=== PATIENT | female | born 1950 | race Caucasian/White ===

== ENCOUNTER 2019-12-15 13:13 | Outpatient (CLI) | payer OTHER, SELFPAY ==
[2019-12-15 14:37] LABS: IFOB Positive Control Positive; Immunochemical Fecal Occult Bl Negative (N)
== END 2019-12-15 13:14 | disposition home or self-care (01) ==
PROVIDERS: PCP Family Medicine; Visit Provider Family Medicine
DX: R19.7 Diarrhea, unspecified (principal)
CPT/HCPCS: 82274; 87045; 87046; 87427

== ENCOUNTER → 2020-05-13 12:21 | Outpatient (CLI) | payer OTHER, SELFPAY ==
--- NOTE | ~2020-05-13 | MM_ITS ---
EXAMINATION: MM screening jhonny BI w maverick HISTORY: Screening TECHNIQUE: Craniocaudal and mediolateral oblique 3-D tomosynthesis images were obtained and synthetic 2-D images were generated. CAD analysis was submitted and interpreted. COMPARISON: Comparison to multiple prior studies sequentially, with oldest reviewed study dated 04/28. BREAST PARENCHYMAL COMPOSITION: The breasts are almost entirely fatty. FINDINGS: There is no evidence of suspicious mass, calcification, or architectural distortion to sugg est malignancy in either breast. There has been no suspicious interval change. IMPRESSION: 1. No mammographic evidence of malignancy. 2. Recommend routine screening mammography in one year. BI-RADS Category 1: Negative Reviewed, dictated and finalized at location A. EMENT WORKER
--- NOTE | ~2020-05-13 | DEXA_ITS ---
Bone Density Report Name: Geraldine Powell Age: 69 Sex: Female Ethnicity: White Date of : 1950 Indication: osteopenia; height loss; postmenopausal Referring Provider: Carissa, Yovana Study: Bone densitometry was performed. Exam Date: May 13, 2020 Accession number: [id number] Bone Density: Region BMD T-score Z-score Classification AP Spine (L1-L4) 0.901 -1.3 0.7 Osteopenia Femoral Neck (Left) 0.630 -2.0 -0.2 Osteopenia Total Hip (Left) 0.959 0.1 1.6 Normal Femoral Neck (Right) 0.722 -1.1 0.6 Osteopenia Total Hip (Right) 0.942 0.0 1.4 Normal Total Hip Mean 0.951 0.1 1.5 Normal World Health Organization criteria for BMD impression classify patients as: Normal (T-score at or above -1.0), Osteopenia (T-score between -1.0 and -2.5), or Osteoporosis (T-score at or below -2.5). 10-year Fracture Risk(1): Major Osteoporotic Fracture 9.6% Hip Fracture 1.5% Reported Risk Factors: [place] (), Neck BMD=0.630, BMI=43.3 (1) FRAX(R) Version 3.08. Fracture probability calculated for an untreated patient. Fracture probability may be lower if the patient has received treatment. Previous Exams: Region Exam Age BMD T-score BMD Change BMD Change Date g/cm2 vs Baseline vs Previous AP Spine(L1-L4) 05/13/2020 69 0.901 -1.3 -0.008 -0.008 09/04/2012 62 0.909 -1.3 Total Hip(Left) 05/13/2020 69 0.959 0.1 -0.050* -0.050* 09/04/2012 62 1.009 0.5 Total Hip(Right) 05/13/2020 69 0.942 0.0 -0.107* -0.107* 09/04/2012 62 1.048 0.9 *Denotes significance at 95% confidence level, LSC for AP Spine = 0.022 g/cm2, LSC for Total Hip = 0.027 g/cm2 Clinical Information Provided by Patient: Has used the following medications: Vitamin D Patient maximum height was 62 Menopause Age: 56 No regular weight bearing exercise Drinks caffeinated beverages Onset of menses at age 15 Number of children 2 Impression: The patient has low bone mass, based on the Left Femoral Neck T-score. The patient has an estimated ten-year risk of hip fracture of 1.5% and an estimated ten-year risk of major fracture of 9.6%, based on the WHO FRAX algorithm. The BMD for the Total Hip(Left) decreased, changing by -0.050 since the last DXA exam. The BMD for the Total Hip(Right) decreased, changing by -0.107 since the last DXA exam. Discussion: BONE DENSITY IS LOW AT ONE OR MORE SKELETAL SITES. This pat
== END ==
PROVIDERS: PCP Family Medicine; Visit Provider Family Medicine
DX: Z12.31 Encounter for screening mammogram for malignant neoplasm of breast (principal); Z78.0 Asymptomatic menopausal state; M85.88 Other specified disorders of bone density and structure, other site; M85.852 Other specified disorders of bone density and structure, left thigh; M85.851 Other specified disorders of bone density and structure, right thigh
CPT/HCPCS: 77063; 77067; 77080

== ENCOUNTER → 2020-11-11 10:21 | Outpatient (CLI) | payer OTHER, SELFPAY ==
--- NOTE | ~2020-11-11 | XR_ITS ---
EXAMINATION: XR shoulder LT min 2V INDICATION: Left shoulder pain TECHNIQUE: Four views of the left shoulder are submitted. COMPARISON: None FINDINGS: Normal alignment. No fracture. There is mild osteoarthritis of the acromioclavicular and gl enohumeral joints. Soft tissues are unremarkable. IMPRESSION: 1. No acute osseous abnormality. Reviewed, dictated and finalized at location A.
--- NOTE | ~2020-11-11 | XR_ITS ---
EXAMINATION:XR_[id number]_CR DATE: 11/11/2020 11:06 INDICATION: Neck pain TECHNIQUE: AP, lateral, lateral swimmers and odontoid views of the cervical spine are provided. COMPARISON: 08/01/2016 FINDINGS: There is 1 mm anterolisthesis of C4 on C5. There is moderate loss of intervertebral disc sp angie height at C5-6 and mild loss of disc space height at C6-7.. The odontoid is intact. No fracture i s identified. The vertebral body heights are normal. There is moderate multilevel facet and uncoverte bral joint osteoarthritis. Prevertebral soft tissues are normal. IMPRESSION: 1. Moderate cervical cervical spondylosis without acute findings or significant interval change. Reviewed, dictated and finalized at location A.
== END ==
PROVIDERS: PCP Family Medicine; Visit Provider Family Medicine
DX: M47.812 Spondylosis without myelopathy or radiculopathy, cervical region (principal); M25.512 Pain in left shoulder
CPT/HCPCS: 72040; 73030

== ENCOUNTER → 2021-05-19 11:20 | Outpatient (CLI) | payer OTHER, SELFPAY ==
--- NOTE | ~2021-05-19 | MM_ITS ---
EXAMINATION: MM screening jhonny BI w maverick HISTORY: Screening TECHNIQUE: Craniocaudal and mediolateral oblique 3-D tomosynthesis images were obtained and synthetic 2-D images were generated. CAD analysis was submitted and interpreted. COMPARISON: Comparison to multiple prior studies sequentially, with oldest reviewed study dated 08/26. BREAST PARENCHYMAL COMPOSITION: The breasts are almost entirely fatty. FINDINGS: There is no evidence of suspicious mass, calcification, or architectural distortion to sugg est malignancy in either breast. There has been no suspicious interval change. IMPRESSION: 1. No mammographic evidence of malignancy. 2. Recommend routine screening mammography in one year. BI-RADS Category 1: Negative Reviewed, dictated and finalized at location A. DOWN MAN
== END ==
PROVIDERS: Visit Provider Family Medicine
DX: Z12.31 Encounter for screening mammogram for malignant neoplasm of breast (principal)
CPT/HCPCS: 77063; 77067

== ENCOUNTER 2021-11-29 12:30 | Outpatient (RCR) | payer OTHER, SELFPAY ==
--- NOTE | 2021-10-25 11:30 | PTOPEVAL ---
Thank you for referring Geraldine Powell to [facility].? She is scheduled to be seen for therapy? 2x/week for 5 weeks. The plan of treatment includes land and aquatic exercises, for the buoyancy effects of the water and ease of motion with decreased WB on L LE. Please review, sign, date and return this plan of care ADAN. I agree with and certify that the following plan of care is medically necessary. Referring Physician Date Attending Provider: Yovana Ferrer MD Outpatient Past Medical History Past Medical History Source of Past Medical History Patient Neurological History Hx Neurological Disorders No Significant History Cardiovascular History Hx Hypertension Yes: meds Respiratory History Hx Sleep Apnea Yes: have CPAP Gastrointestinal History Hx Cholecystectomy Yes Genitourinary History Hx Other Genitourinary Disorders Yes: occasional urinary incontinence at night Musculoskeletal History Hx Arthritis Yes: alot of arthritis all over body Hx Other Musculoskeletal Disorders Yes: L humeral fracture/ nonsurgical Endocrine History Hx Endocrine Disorders No Significant History Evaluation Information Problem Diagnosis L tibial stress fracture/ OA L knee Onset June 2021 Subjective Information steroid injection in June, Query Text:As Reported By Patient/ increase in pain in beginning Family of July- thought it was from sciatica; went to chiropractor ; finally got into ortho dr- had MRI, found stress fracture ; no fall since fall in Feb with injury to L shoulder; non surgical--have brace but it will not stay on--dr aware of this; using wheeled walker or cane; had PT on knee prior to seeing dr--then after MRI NO PT on knee until this new order; and does not have any restrictions from dr at this time; she has been doing sitting knee flexion/extension exercises only; Prior Level of Function Activity Level (Last 3 Months) Cooking Yes Cleaning Yes Laundry No Shopping Yes Driving Yes Home Setting Home Type House Living Situation
--- NOTE | 2021-11-09 12:56 | PCPTNOTE ---
Patient did not show up for scheduled appointment this date. Called and spoke to patient, she stated she was sorry, but, she looked at her schedule wrong.
--- NOTE | 2021-11-29 13:07 | PTOPDC ---
Assessment and note entered by Cheyenne Maurice, PT Evaluation Information Assessment Status Discharge Subjective Information Nabila reports: am stronger--can be up on my legs longer; still leery of falling; moving around more freely; use walker at night for safety to go to the bathroom, otherwise walk with the cane and sometimes without anything; knee is not as sore or painful, but ankles and feet still painful ; plan to return to the aquatic exercises at the fitness center; is doing all the exercises at home too; Reported Pain Level Pain Score Self Report Additional Pain Score Comments pain range 0-7/10 in L leg--knee, foot, ankle pain ; walking/standing with home tasks 1 & 1/2 hours; sometimes have pain in L leg with turning over in bed; ice and tylenol for pain; reinforced activity/rest balance to manage pain; Assessment PT Clinical Summary Nabila has received 10 PT sessions for the diagnosis of L tibial stress fracture and knee pain. Compared to the initial evaluation: pain rating at the high rating is the same and low rating decreased from 4 to 0/10; reported standing/ walking tolerance increased by 30 min; 2 minute walking distance increased by 75'; strength of L hip and knee have improved. She is independent with her home exercise program for LE strengthening and aquatic exercises, for return to fitness center. She continues to report a fear of falling and voiced concern about her ankle pain and progression of her ankle issues, which may affect her mobility. The goals were partially achieved. Discharge PT services. She is to continue with her home exercises and increase activity level as tolerated. Plan of Care PT Services Indicated No
== END 2021-11-29 15:17 | disposition home or self-care (01) ==
LOC: ANHPT 12:30
PROVIDERS: PCP Family Medicine; Visit Provider Family Medicine
DX: M84.362D Stress fracture, left tibia, subsequent encounter for fracture with routine healing (principal); M17.12 Unilateral primary osteoarthritis, left knee
CPT/HCPCS: 97110; 97113; 97162; 97530; 99199

== ENCOUNTER → 2022-05-31 13:12 | Outpatient (CLI) | payer OTHER, SELFPAY ==
--- NOTE | ~2022-05-31 | MM_ITS ---
EXAMINATION: MM screening jhonny BI w maverick HISTORY: Screening TECHNIQUE: Craniocaudal and mediolateral oblique 3-D tomosynthesis images were obtained and synthetic 2-D images were generated. CAD analysis was submitted and interpreted. COMPARISON: Comparison to multiple prior studies sequentially, with oldest reviewed study dated 10/2015. BREAST PARENCHYMAL COMPOSITION: The breasts are almost entirely fatty. FINDINGS: There is no evidence of suspicious mass, calcification, or architectural distortion to sugg est malignancy in either breast. There has been no suspicious interval change. IMPRESSION: 1. No mammographic evidence of malignancy. 2. Recommend routine screening mammography in one year. BI-RADS Category 1: Negative Reviewed, dictated and finalized at location A.
--- NOTE | ~2022-05-31 | DEXA_ITS ---
Bone Density Report Name: DELORES FRENCH Age: 71 Sex: Female Ethnicity: White Date of : 1950 Indication: osteopenia; height loss; prior fracture; postmenopausal Referring Provider: Carissa, Yovana Study: Bone densitometry was performed. Exam Date: May 31, 2022 Accession number: [id number] Bone Density: Region BMD T-score Z-score Classification AP Spine (L1-L4) 0.884 -1.5 0.7 Osteopenia Femoral Neck (Left) 0.590 -2.3 -0.5 Osteopenia Total Hip (Left) 0.901 -0.3 1.2 Normal Femoral Neck (Right) 0.681 -1.5 0.3 Osteopenia Total Hip (Right) 0.949 0.1 1.6 Normal Total Hip Mean 0.925 -0.1 1.4 Normal World Health Organization criteria for BMD impression classify patients as: Normal (T-score at or above -1.0), Osteopenia (T-score between -1.0 and -2.5), or Osteoporosis (T-score at or below -2.5). 10-year Fracture Risk(1): Major Osteoporotic Fracture 18% Hip Fracture 3.5% Reported Risk Factors: [place] (), Neck BMD=0.590, BMI=44.2, previous fracture (1) FRAX(R) Version 3.08. Fracture probability calculated for an untreated patient. Fracture probability may be lower if the patient has received treatment. Previous Exams: Region Exam Age BMD T-score BMD Change BMD Change Date g/cm2 vs Baseline vs Previous AP Spine(L1-L4) 05/31/2022 71 0.884 -1.5 -0.025* -0.017 05/13/2020 69 0.901 -1.3 -0.008 -0.008 09/04/2012 62 0.909 -1.3 Total Hip(Left) 05/31/2022 71 0.901 -0.3 -0.108* -0.057* 05/13/2020 69 0.959 0.1 -0.050* -0.050* 09/04/2012 62 1.009 0.5 Total Hip(Right) 05/31/2022 71 0.949 0.1 -0.099* 0.008 05/13/2020 69 0.942 0.0 -0.107* -0.107* 09/04/2012 62 1.048 0.9 *Denotes significance at 95% confidence level, LSC for AP Spine = 0.022 g/cm2, LSC for Total Hip = 0.027 g/cm2 Clinical Information Provided by Patient: Has had a low trauma fracture Has used the following medications: Vitamin D, Calcium, occasionally Patient maximum height was 62 Menopause Age: 56 No regular weight bearing exercise Drinks caffeinated beverages Onset of menses at age 15 Number of children 2 Impression: The patient has low bone mass, based on the Left Femoral Neck T-score. The patient has an estimated ten-year risk of hip fracture of 3.5% and an estimated ten-year risk of major fracture of 18%, ba
== END ==
PROVIDERS: PCP Family Medicine; Visit Provider Family Medicine
DX: Z12.31 Encounter for screening mammogram for malignant neoplasm of breast (principal); Z78.0 Asymptomatic menopausal state; M85.88 Other specified disorders of bone density and structure, other site; M85.852 Other specified disorders of bone density and structure, left thigh; M85.851 Other specified disorders of bone density and structure, right thigh
CPT/HCPCS: 77063; 77067; 77080

== ENCOUNTER 2023-06-28 14:44 | Outpatient (CLI) | payer OTHER, SELFPAY ==
--- NOTE | ~2023-06-28 | MM_ITS ---
EXAMINATION: MM screening jhonny BI w maverick HISTORY: Screening TECHNIQUE: Craniocaudal and mediolateral oblique 3-D tomosynthesis images were obtained and synthetic 2-D images were generated. CAD analysis was submitted and interpreted. COMPARISON: Comparison to multiple prior studies sequentially, with oldest reviewed study dated 07/2020. BREAST PARENCHYMAL COMPOSITION: Not Dense: Breast are almost entirely fatty. FINDINGS: There is no evidence of suspicious mass, calcification, or architectural distortion to sugg est malignancy in either breast. There has been no suspicious interval change. IMPRESSION: 1. No mammographic evidence of malignancy. 2. Recommend routine screening mammography in one year. BI-RADS Category 1: Negative Reviewed, dictated and finalized at location B.
== END 2023-06-28 14:45 ==
LOC: MICIMG 14:45
PROVIDERS: PCP Family Medicine; Visit Provider Family Medicine
DX: Z12.31 Encounter for screening mammogram for malignant neoplasm of breast (principal)
CPT/HCPCS: 77063; 77067

== ENCOUNTER 2023-08-13 10:21 | Outpatient (CLI) | payer OTHER, SELFPAY ==
--- NOTE | ~2023-08-13 | MR_ITS ---
MRI of the right knee Clinical history: Tibial stress fracture Technique: Coronal proton density and proton density-weighted images, sagittal proton-density and T2 fat-sat images, and axial proton-density fat-saturated images were acquired. Findings: Anterior and posterior cruciate ligaments are intact. Medial collateral ligament and the la teral collateral ligament, as are intact. Popliteus tendon is intact. There is complex tearing of the posterior horn of the medial meniscus, which is diminutive. There is also probable complex tearing of the body segment of the lateral meniscus. 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 There is e xtensive grade 4 chondral malacia the femoral trochlea. There is patchy moderate to high-grade chondr omalacia of the medial femoral condyle. There is mild chondral thinning of the lateral compartment. S mall tricompartmental osteophytes are present. Extensor mechanism is intact. No significant joint effusion. No Clarke's cyst. Impression: No distinct evidence for tibial stress fracture. Comput tearing posterior horn of the medial assist. Probable complex tear of the body segment lateral meniscus. Tricompartmental degenerative change, as detailed above, worst in the patellofemoral compartment. Reviewed, dictated and finalized at location . Impression: No distinct evidence for tibial stress fracture. Comput tearing posterior horn of the medial assist. Probable complex tear of the body segment lateral meniscus. Tricompartmental degenerative change, as detailed above, worst in the patellofe moral compartment.
== END 2023-08-13 10:22 ==
LOC: MICIMG 10:22
PROVIDERS: PCP Family Medicine
DX: S83.231A Complex tear of medial meniscus, current injury, right knee, initial encounter (principal); M17.11 Unilateral primary osteoarthritis, right knee; X58.XXXA Exposure to other specified factors, initial encounter
CPT/HCPCS: 73721

== ENCOUNTER 2024-08-22 11:09 | Outpatient (CLI) | payer MEDICARE, SELFPAY ==
--- NOTE | ~2024-08-22 | MM_ITS ---
EXAMINATION: MM screening jhonny BI w maverick HISTORY: Screening TECHNIQUE: Craniocaudal and mediolateral oblique 3-D tomosynthesis images were obtained and synthetic 2-D images were generated. CAD analysis was submitted and interpreted. COMPARISON: Comparison to multiple prior studies sequentially, with oldest reviewed study dated 01/11. BREAST PARENCHYMAL COMPOSITION: Not Dense: The breasts are almost entirely fatty. FINDINGS: There is no evidence of suspicious mass, calcification, or architectural distortion to sugg est malignancy in either breast. There has been no suspicious interval change. IMPRESSION: 1. No mammographic evidence of malignancy. 2. Recommend routine screening mammography in one year. BI-RADS Category 1: Negative Reviewed, dictated and finalized at location A.
== END 2024-08-22 11:10 | disposition home or self-care (01) ==
LOC: MICIMG 11:10
PROVIDERS: PCP Family Medicine; Visit Provider Family Medicine
DX: Z12.31 Encounter for screening mammogram for malignant neoplasm of breast (principal)
CPT/HCPCS: 77063; 77067

== ENCOUNTER 2025-01-29 11:05 | Outpatient (CLI) | payer MEDICARE, SELFPAY ==
--- NOTE | ~2025-01-29 | DEXA_ITS ---
Bone Density Report Name: DELORES FRENCH Age: 74 Sex: Female Ethnicity: White Date of : 1950 Indication: osteopenia; height loss; prior fracture; Referring Provider: Carissa, Yovana Study: Bone densitometry was performed. Exam Date: January 29, 2025 Accession number: [id number] Bone Density: Region BMD T-score Z-score Classification AP Spine(L2, L3, L4) 0.828 -2.3 0.1 Osteopenia Femoral Neck (Left) 0.567 -2.5 -0.5 Osteoporosis Total Hip (Left) 0.839 -0.8 0.9 Normal Femoral Neck (Right) 0.670 -1.6 0.4 Osteopenia Total Hip (Right) 0.820 -1.0 0.7 Normal Total Hip Mean 0.830 -0.9 0.8 Normal World Health Organization criteria for BMD impression classify patients as: Normal (T-score at or above -1.0), Osteopenia (T-score between -1.0 and -2.5), or Osteoporosis (T-score at or below -2.5). 10-year Fracture Risk: FRAX not reported because: Some T-score for Spine Total or Hip Total or Femoral Neck at or below -2.5 Previous Exams: -- Region Exam Age BMD T-score BMD Change BMD Change Date g/cm2 vs Baseline vs Previous -- AP Spine (L2-L4) 01/29/2025 74 0.828 -2.3 -8.8%* -5.1%* 05/31/2022 71 0.872 -1.9 -3.9%* -3.2%* 05/13/2020 69 0.901 -1.6 -0.7% -0.7% 09/04/2012 62 0.907 -1.6 Total Hip(Left) 01/29/2025 74 0.839 -0.8 -16.8%# -6.9%# 05/31/2022 71 0.901 -0.3 -10.7%* -6.0%* 05/13/2020 69 0.959 0.1 -5.0%* -5.0%* 09/04/2012 62 1.009 0.5 Total Hip(Right) 01/29/2025 74 0.820 -1.0 -21.8%# -13.6%# 05/31/2022 71 0.949 0.1 -9.5%* 0.8% 05/13/2020 69 0.942 0.0 -10.2%* -10.2%* 09/04/2012 62 1.048 0.9 -- *Denotes significance at 95% confidence level, LSC for AP Spine = 0.022 g/cm2, LSC for Total Hip = 0.027 g/cm2 Rate of change results reflect vertebral levels common to all scans # Denotes dissimilar scan types or analysis methods Clinical Information Provided by Patient: Has had a low trauma fracture Patient maximum height was 62 Menopause Age: 56 No regular weight bearing exercise Onset of menses at age 15 Number of children 2 Impression: The patient has established osteoporosis, based on the Left Femoral Neck T-score and the existence of a prior fracture. The patient has risk factors, including: previous fracture. The BMD for the AP Spine (L2-L4) decreased, changing by -5.1% since the last DXA exam. Discussion: HIGH RISK OF FRACTURE. BONE DENSITY IS UNDESIRABLY LOW AT ONE OR MORE SKELETAL SITES, CONSISTENT WITH POSTMENOPAUSAL OSTEOPOROSIS. This patient's lowest T-score, in a patient who has previously fractured, meets the World Health Organization's (WHO) criteria for severe osteoporosis. In untreated patients, the risk of osteoporotic fracture increases approximately two-fold for each 1.0 SD decrease in T-score. Low bone density is not the only risk factor for fracture; also consider factors such as patient's age, frailty or poor health, risk of falling, risk of injury, previous osteoporotic fracture, family history of osteoporosis, cigarette smoking, low body weight, etc. Not everyone with low bone mineral density has osteoporosis; osteomalacia and other metabolic bone disorders should also be considered. Patients who have osteoporosis should be evaluated for specific diseases and conditions (secondary causes) that may cause or contribute to bone loss. The [place] [employer]ocr[employer] (AACE) and National Osteoporosis Foundation (NOF) recommend pharmacologic intervention for all postmenopausal women whose T-score is in this range. The patient should follow a healthful lifestyle (good nutrition with adequate calcium and vitamin D, and appropriate weight-bearing exercise). Follow-Up: Consider a repeat BMD and Vertebral Fracture Assessment (VFA) exam in 2 years or sooner if medically necessary, to reassess this patient's status. Reported by: SANDRA on 01/29/2025 11:34:00 AM. Reviewed, dictated and finalized at location A.
== END 2025-01-29 11:06 | disposition home or self-care (01) ==
LOC: MICIMG 11:06
PROVIDERS: PCP Family Medicine; Visit Provider Family Medicine
DX: Z78.0 Asymptomatic menopausal state (principal); M85.88 Other specified disorders of bone density and structure, other site; M81.0 Age-related osteoporosis without current pathological fracture; M85.851 Other specified disorders of bone density and structure, right thigh
CPT/HCPCS: 77080